=== PATIENT | female | born 1980 | race Caucasian/White ===

== ENCOUNTER 2024-06-23 04:47 | Day surgery (SDC) | payer OTHER ==
[2024-06-19 16:02] VITALS: BMI 32.5
[2024-06-23] MEDS: ceFAZolin SODIUM 1 GM VIAL IVPB ONE
[2024-06-23] MEDS ORDERED: BUPIVACAINE HCL/PF 0.25% (2.5MG/ML) 10 ML VIAL ONE (07:12)
[2024-06-23] MEDS ORDERED: MIDAZOLAM HCL 2 MG/2 ML SINGLE DOSE VIAL ONE ×3 (07:52→08:26)
[2024-06-23] MEDS ORDERED: SUCCINYLCHOLINE CHLORIDE 200 MG/10 ML SYRINGE ONE (07:52)
[2024-06-23] MEDS ORDERED: PROPOFOL 40 ML ONE (08:23)
[2024-06-23] MEDS: BUPIVACAINE HCL/PF 0.25% (2.5MG/ML) 10 ML VIAL IJ ONE ×2 (08:47)
[2024-06-23] MEDS: MICROFIBRILLAR COLLAGEN 1 GM EACH TP ONE (08:48)
[2024-06-23] MEDS ORDERED: oxyCODONE HCL 5 MG TABLET PO PRN ×2 (09:26)
[2024-06-23] MEDS ORDERED: ONDANSETRON 4 MG/2 ML VIAL IVPUSH PRN (09:26)
[2024-06-23] MEDS ORDERED: LACTATED RINGERS SOLUTION 1,000 ML IV SCH (09:30)
[2024-06-23 10:07] VITALS: RESP 18
[2024-06-23 12:22] VITALS: BP 105/75; PULSE 78; TEMP 98.3
== END 2024-06-23 12:27 | disposition home or self-care (01) ==
LOC: JASU-SURG 04:47
PROVIDERS: ATTEND Surgery
PROC: 06BY0ZC Excision of Hemorrhoidal Plexus, Open Approach (ICD-10-PCS; principal; 2024-06-23 08:00)
DX: K64.8 Other hemorrhoids (principal)
CPT/HCPCS: 81025; 88304-TC; 94760